=== PATIENT | female | born 1995 | race African-American/Black ===

== ENCOUNTER 2018-04-24 20:40 | Inpatient (IN) ==
[2018-04-24] MEDS ORDERED: SODIUM CHLORIDE 0.9% 1,000 ML IV PRN ×2 (20:57→21:01)
[2018-04-24] MEDS ORDERED: LACTATED RINGERS 1,000 ML IV SCH (21:00)
[2018-04-24] MEDS ORDERED: CLINDAMYCIN INJ 50 ML IV ONE (21:06)
[2018-04-24] MEDS ORDERED: OXYTOCIN 10 UNIT/ML VIAL ONE (21:06)
[2018-04-24 21:15] LABS: Basophils % 0.3 % (0.0-0.8); Eosinophils % 0.1 % (0.00-10.9); Hematocrit 35.2 VOL% (35.7-47.0); Immature Granulocytes % 1.2 %; Immature Granulocytes Absolute 0.14 #; Lymphocytes # 2.2 10*3/uL (1.4-4.0); Lymphocytes % 19.3 % (21.3-54.2); Mean Corpuscular HGB Conc 31.3 GM/DL (32-36); Mean Corpuscular Hemoglobin 23 PG (27-34); Mean Platelet Volume 10.6 FL (9.6-12.0); Monocytes # 1.4 10*3/uL (0.11-0.8); Monocytes % 11.9 % (1.7-12.7); NRBC # 0.02 10*3/uL; Neutrophils # 7.6 10*3/uL (1.4-7.4); Neutrophils % 67.2 % (38.7-73.9); Platelet Count 252 T/CUMM (130-400); Red Blood Count 4.82 MC/CUMM (3.8-5.5); Red Cell Distribution Width 14.6 % (9.3-17.3); White Blood Count 11.4 T/CUMM (4-12)
[2018-04-24 21:20] LABS: Cord Arterial Blood HCO3 19.3 MMOL/L
[2018-04-24 21:23] LABS: Cord Venous Blood HCO3 18.6 MMOL/L
[2018-04-24 21:26] LABS: Cord Venous Blood PCO2 137.4 MMHG; Cord Venous Blood PO2 19.4 MMHG
[2018-04-24] MEDS ORDERED: OXYTOCIN/LR 30 UNIT/1,000 ML BAG IV ONE (21:33)
[2018-04-24] MEDS ORDERED: OXYTOCIN/LR 20 UNIT/1,000 ML BAG IV ONE ×2 (21:36→21:50)
[2018-04-24] MEDS ORDERED: CLINDAMYCIN INJ 900 MG in PREMIX 1 EACH IV ONE (21:38)
[2018-04-24] MEDS ORDERED: HYDROmorphone 2 MG/1 ML VIAL ONE (21:43)
[2018-04-24] MEDS ORDERED: KETOROLAC 30 MG/1 ML VIAL ONE (21:57)
[2018-04-24] MEDS ORDERED: ACETAMINOPHEN 1,000 MG/100 ML VIAL IV ONE (21:57)
[2018-04-24] MEDS ORDERED: OXYTOCIN 10 UNIT/ML VIAL IM ONE (22:00)
[2018-04-24] MEDS ORDERED: MAGNESIUM SULF RIDER 100 ML IV ONE (22:01)
[2018-04-24] MEDS ORDERED: MAGNESIUM SULF DRIP 40 GM/1,000 ML ML IV ONE (22:03)
[2018-04-24] MEDS ORDERED: fentaNYL 100 MCG/2 ML VIAL ONE (22:09)
[2018-04-24] MEDS ORDERED: MIDAZOLAM 2 MG/2 ML VIAL ONE (22:10)
[2018-04-24] MEDS ORDERED: SUCCINYLCHOLINE 200 MG/10 ML VIAL ONE (22:10)
[2018-04-24] MEDS ORDERED: PROPOFOL 200 MG/20 ML VIAL IV ONE (22:10)
[2018-04-24] MEDS ORDERED: hydrALAZINE 20 MG/1 ML VIAL IV ONE ×2 (22:19→22:30)
[2018-04-24] MEDS ORDERED: MAGNESIUM SULF DRIP 40 GM/1,000 ML ML IV SCH (22:30)
[2018-04-24 23:54] LABS: Basophils % 0.2 % (0.0-0.8); Eosinophils % 0.1 % (0.00-10.9); Hematocrit 30.7 VOL% (35.7-47.0); Hemoglobin 9.4 GM/DL (12.0-16.0); Immature Granulocytes % 2.6 %; Immature Granulocytes Absolute 0.27 #; Lymphocytes # 2.1 10*3/uL (1.4-4.0); Lymphocytes % 20.8 % (21.3-54.2); Mean Corpuscular HGB Conc 30.6 GM/DL (32-36); Mean Corpuscular Hemoglobin 23 PG (27-34); Mean Corpuscular Volume 74.3 FL (87-102); Monocytes # 1.2 10*3/uL (0.11-0.8); NRBC # 0.02 10*3/uL; Neutrophils # 6.6 10*3/uL (1.4-7.4); Neutrophils % 64.3 % (38.7-73.9); Platelet Count 227 T/CUMM (130-400); Red Blood Count 4.13 MC/CUMM (3.8-5.5); Red Cell Distribution Width 14.6 % (9.3-17.3); White Blood Count 10.2 T/CUMM (4-12)
[2018-04-25] MEDS ORDERED: NALOXONE 0.4 MG/ML VIAL IV PRN (01:31)
[2018-04-25] MEDS ORDERED: HYDROmorphone PCA 30 MG/30 ML SYRINGE IV ONE (01:34)
[2018-04-25] MEDS ORDERED: HYDROmorphone PCA 30 MG/30 ML SYRINGE IV SCH (02:00)
[2018-04-25 03:12] LABS: Apearance,Urine Slightly Hazy (Clear); Bacteria,Urine Occasional /HPF (Few); Bilirubin,Urine Negative (Negative); Blood, Urine Moderate mg/dL (Negative); Glucose,Urine (UA) Negative (Negative); Hyaline Casts,Urine 86 /LPF (0-3); Ketones,Urine Negative (Negative); Mucus,Urine Occasional /LPF (Occasional); Nitrite,Urine Negative (Negative); Protein,Urine 100 MG/DL; RBC,Urine 19 /HPF (0-4); Squamous Epithelial Cell,Urine Occasional /HPF (0-10); Urine Color Yellow (Yellow); Urine Specific Gravity 1.032 (1.001-1.035); Urine Urobilinogen < 2.0 EU/DL (0.2-1.0); WBC,Urine 19 /HPF (0-6)
[2018-04-25 04:20] LABS: Basophils % 0.2 % (0.0-0.8); Eosinophils % 0.1 % (0.00-10.9); Hematocrit 29.8 VOL% (35.7-47.0); Hemoglobin 8.9 GM/DL (12.0-16.0); Immature Granulocytes % 1.3 %; Immature Granulocytes Absolute 0.16 #; Lymphocytes # 2.2 10*3/uL (1.4-4.0); Lymphocytes % 18.2 % (21.3-54.2); Mean Corpuscular HGB Conc 29.9 GM/DL (32-36); Mean Corpuscular Hemoglobin 22 PG (27-34); Mean Corpuscular Volume 74.1 FL (87-102); Mean Platelet Volume 10.8 FL (9.6-12.0); Monocytes # 1.6 10*3/uL (0.11-0.8); Monocytes % 13.2 % (1.7-12.7); Neutrophils # 8.1 10*3/uL (1.4-7.4); Platelet Count 236 T/CUMM (130-400); Red Blood Count 4.02 MC/CUMM (3.8-5.5); Red Cell Distribution Width 14.6 % (9.3-17.3); White Blood Count 12.1 T/CUMM (4-12)
[2018-04-25] MEDS: CLINDAMYCIN INJ 900 MG in PREMIX 1 EACH IV SCH ×3 (04:26→21:27)
[2018-04-25] MEDS: ONDANSETRON 4 MG/2 ML VIAL IV PRN ×2 (10:39→16:51)
[2018-04-25] MEDS: FUROSEMIDE 40 MG/4 ML VIAL IV SCH ×2 (13:30→19:37)
[2018-04-25] MEDS: IRON (CARBONYL) 45 MG TABLET PO SCH ×2 (13:54→21:28)
[2018-04-25] MEDS ORDERED: OXYTOCIN/LR 20 UNIT/1,000 ML BAG IV ONE (14:19)
[2018-04-25] MEDS ORDERED: ACETAMINOPHEN 325 MG TABLET PO PRN (17:18)
[2018-04-25] MEDS ORDERED: BISACODYL 10 MG SUPP RECTAL PRN (17:18)
[2018-04-25] MEDS ORDERED: ONDANSETRON 4 MG/2 ML VIAL IV PRN (17:18)
[2018-04-25] MEDS ORDERED: LACTATED RINGERS 1,000 ML IV SCH (17:30)
[2018-04-25] MEDS: oxyCODONE/ACETAMINOPHEN 5-325 MG TABLET PO PRN (18:01)
[2018-04-25] MEDS: DOCUSATE SODIUM 100 MG CAPSULE PO SCH (21:28)
[2018-04-26] MEDS: oxyCODONE/ACETAMINOPHEN 5-325 MG TABLET PO PRN ×4 (01:52→21:30)
[2018-04-26] MEDS: FUROSEMIDE 40 MG/4 ML VIAL IV SCH (01:53)
[2018-04-26] MEDS: MAGNESIUM HYDROXIDE SUSP 30 ML UDCUP PO PRN (08:40)
[2018-04-26] MEDS: DOCUSATE SODIUM 100 MG CAPSULE PO SCH ×2 (08:40→21:27)
[2018-04-26] MEDS: FERROUS SULFATE 325 MG TABLET PO SCH ×2 (09:39→21:27)
[2018-04-26] MEDS: IBUPROFEN 800 MG TABLET PO PRN (13:42)
[2018-04-27 07:23] VITALS: BP 139/76
[2018-04-27] MEDS: MAGNESIUM HYDROXIDE SUSP 30 ML UDCUP PO PRN (08:16)
[2018-04-27] MEDS: IBUPROFEN 800 MG TABLET PO PRN (08:16)
[2018-04-27] MEDS: FERROUS SULFATE 325 MG TABLET PO SCH (08:16)
[2018-04-27] MEDS: DOCUSATE SODIUM 100 MG CAPSULE PO SCH (08:16)
[2018-04-27] MEDS: oxyCODONE/ACETAMINOPHEN 5-325 MG TABLET PO PRN (08:18)
== END 2018-04-27 16:25 | disposition home or self-care (01) | DRG 540 ==
LOC: N.LDOUT 20:40 → N.LD 20:41 → N.OB 04-25 20:40
PROVIDERS: ADMIT Obstetrics & Gynecology; ATTEND Obstetrics & Gynecology
PROC: LDCSECT (ICD-10-PCS; 2018-04-24 21:00)